=== PATIENT | male | born 1970 | race Caucasian/White ===

== ENCOUNTER 2019-07-28 19:12 | Emergency (ER) | payer SELFPAY ==
[~2019-07-28] VITALS: Ht 185.4 cm; Wt 104.0 kg
--- NOTE | 2019-07-28 19:57 | NUR ---
pt stating that he can't feel his fingers - dressing is removed. pt has good CSM - bleeding has slowed to an ooze - saline soaked 4x4 placed on laceration and coban on top of that. pt advised to let staff know if the dressing gets saturated
[2019-07-28] MEDS ORDERED: bacitracin 15gm ointment TP ONE (20:30)
[2019-07-28] MEDS ORDERED: LIDOcaine 1% W/epiNEPHrine 1:200,000 10ml vial IJ ONE (20:30)
[2019-07-28] MEDS ORDERED: LIDOcaine 1% W/epiNEPHrine 1:100,000 20ml vial SQ ONE (21:55)
[2019-07-28] MEDS ORDERED: CEPH-572 PO (22:03)
[2019-07-28 22:33] VITALS: BP 139/72
== END 2019-07-28 22:37 | disposition home or self-care (01) ==
LOC: ER 19:12
DX: S61.211A Laceration without foreign body of left index finger without damage to nail, initial encounter (principal); Z98.890 Other specified postprocedural states; Z79.899 Other long term (current) drug therapy; W26.8XXA Contact with other sharp object(s), not elsewhere classified, initial encounter; Y93.89 Activity, other specified; Y92.89 Other specified places as the place of occurrence of the external cause; Y99.8 Other external cause status
CPT/HCPCS: 12001; 99283

== ENCOUNTER 2021-05-24 08:54 | Emergency (ER) | payer OTHER ==
[~2021-05-24] VITALS: Ht 185.4 cm; Wt 100.0 kg
[2021-05-24 09:05] VITALS: BP 154/85
[2021-05-24] MEDS ORDERED: ketorolac trometh inj. 60 MG/2 ML VIAL IM ONE (09:10)
== END 2021-05-24 10:06 | disposition home or self-care (01) ==
LOC: ER 08:54
DX: S53.441A Ulnar collateral ligament sprain of right elbow, initial encounter (principal); M25.521 Pain in right elbow; Z98.890 Other specified postprocedural states; X58.XXXA Exposure to other specified factors, initial encounter; Y93.89 Activity, other specified; Y92.89 Other specified places as the place of occurrence of the external cause; Y99.8 Other external cause status
CPT/HCPCS: 99281; 99282

== ENCOUNTER 2021-06-20 14:13 | Emergency (ER) | payer OTHER ==
[~2021-06-20] VITALS: Ht 185.4 cm; Wt 102.3 kg
[2021-06-20 14:55] VITALS: BP 157/104
== END 2021-06-20 16:52 | disposition home or self-care (01) ==
LOC: ER 14:14
DX: U07.1 COVID-19 (principal)
CPT/HCPCS: 87635; 99283; C9803